=== PATIENT | female | born 1960 | race American Indian/Alaskan Native ===

== ENCOUNTER 2021-02-04 17:48 | Emergency (ER) | payer MEDICARE ==
[2021-02-04] MEDS ORDERED: ONDANSETRON 4 MG/2 ML INJ IV ONE (18:21)
[2021-02-04] MEDS ORDERED: hydrALAZINE 20 MG/1 ML INJ IV ONE (18:22)
--- NOTE | 2021-02-04 18:24 | Emergency Department Report ---
HPI - General Chief Complaint: Medical Clearance Time Seen by Provider: 02/04/21 18:09 - HPI HPI: This is a 60-year-old -[place] female [facility] with a complaint of needing drug and alcohol detox/rehabilitation, but the patient was not accepted at intake secondary to an elevated blood pressure. The patient does have a history of hypertension for which she was previously on HCTZlisinopril, but has been noncompliant with this medication. She also has a history of coronary artery disease with previous CA on Plavix, and hepatitis C. The patient is seeking treatment of an addiction to crack cocaine, heroin, morphine, and alcohol. The patient is a tobacco smoker. She has not used any substances since yesterday. She complains of some nausea without vomiting, body aches, diarrhea, and shortness of breath. ED Past Medical Hx - Past Medical History Previous Medical History?: No - Surgical History Past Surgical History?: No - Medications Home Medications: Home Medications Medication Instructions Recorded Confirmed Last Taken Type hydroCHLOROthiazide [Hctz] 12.5 mg PO QDAY #20 capsule 02/04/21 Unknown Rx lisinopriL [Lisinopril] 10 mg PO QDAY #20 tablet 02/04/21 Unknown Rx ED Review of Systems ROS: Stated complaint: HYPERTENSION Other details as noted in HPI Comment: All other systems reviewed and negative Constitutional: denies: chills, fever Eyes: denies: eye pain, vision change ENT: denies: ear pain, throat pain Respiratory: shortness of breath. denies: cough Cardiovascular: denies: chest pain, palpitations Gastrointestinal: abdominal pain (Cramping), nausea, diarrhea. denies: vomiting Genitourinary: denies: dysuria, discharge Musculoskeletal: myalgia. denies: joint swelling Skin: denies: rash, lesions Neurological: denies: headache, weakness Physical Exam - Physical Exam Vital Signs: Vital Signs 02/04/21 17:58 Temperature 98.0 F Pulse Rate 70 Respiratory 16 Rate Blood Pressure 183/111 [Right] O2 Sat by Pulse 99 Oximetry Physical Exam: GENERAL: The patient is well-developed well-nourished. HENT: Normocephalic. Atraumatic. Patient has moist mucous membranes. EYES: Extraocular motions are intact. NECK: Supple. Trachea is midline. CHEST/LUNGS: Clear to auscultation. There is no respiratory distress noted. HEART/CARDIOVASCULAR: Regular. There is no tachycardia. There is no murmur. ABDOMEN: Abdomen is soft, nontender. Patient has normal bowel sounds. SKIN: Skin is warm and dry. NEURO: The patient is awake, alert, and oriented. The patient is cooperative. The patient has no focal neurologic deficits. Normal speech. Cranial nerves II through XII grossly intact. MUSCULOSKELETAL: There is no tenderness or deformity. There is no limitation range of motion. ED Course Vital Signs 02/04/21 17:58 Temperature 98.0 F Pulse Rate 70 Respiratory 16 Rate Blood Pressure 183/111 [Right] O2 Sat by Pulse 99 Oximetry ED Medical Decision Making - Lab Data Result diagrams: 02/04/21 18:48 02/04/21 18:48 Lab Results 02/04/21 02/04/21 02/04/21 Range/Units 18:48 18:48 18:48 WBC 5.2 (4.5-11.0) K/mm3 RBC 4.24 (3.65-5.03) M/mm3 Hgb 13.2 (10.1-14.3) gm/dl Hct 39.4 (30.3-42.9) % MCV 93 (79-97) fl MCH 31 (28-32) pg MCHC 34 (30-34) % RDW 14.9 (13.2-15.2) % Plt Count 234 (140-440) K/mm3 Add Manual Diff Complete Total Counted 100 Seg Neuts % (Manual) 46.0 (40.0-70.0) % Lymphocytes % (Manual) 50.0 H (13.4-35.0) % Monocytes % (Manual) 2.0 (0.0-7.3) % Eosinophils % (Manual) 2.0 (0.0-4.3) % Nucleated RBC % Not Reportable Seg Neutrophils # Man 2.4 (1.8-7.7) K/mm3 Band Neutrophils # 0.0 K/mm3 Lymphocytes # (Manual) 2.6 (1.2-5.4) K/mm3 Abs React Lymphs (Man) 0.0 K/mm3 Monocytes # (Manual) 0.1 (0.0-0.8) K/mm3 Eosinophils # (Manual) 0.1 (0.0-0.4) K/mm3 Basophils # (Manual) 0.0 (0.0-0.1) K/mm3 Metamyelocytes # 0.0 K/mm3 Myelocytes # 0.0 K/mm3 Promyelocytes # 0.0 K/mm3 Blast Cells # 0.0 K/mm3 WBC Morphology Not Reportable Hypersegmented Neuts Not Reportable Hyposegmented Neuts Not Reportable Hypogranular Neuts Not Reportable Smudge Cells Not Reportable Toxic Granulation Not Reportable Toxic Vacuolation Not Reportable Dohle Bodies Not Reportable Pelger-Huet Anomaly Not Reportable Jez Rods Not Reportable Platelet Estimate Consistent w auto Clumped Platelets Not Reportable Plt Clumps, EDTA Not Reportable Large Platelets Not Reportable Giant Platelets Not Reportable Platelet Satelliting Not Reportable Plt Morphology Comment Not Reportable RBC Morphology Not Reportable Dimorphic RBCs Not Reportable Polychromasia Not Reportable Hypochromasia Not Reportable Poikilocytosis Not Reportable Anisocytosis Few Microcytosis Not Reportable Macrocytosis Not Reportable Spherocytes Not Reportable Pappenheimer Bodies Not Reportable Sickle Cells Not Reportable Target Cells Not Reportable Tear Drop Cells Not Reportable Ovalocytes Not Reportable Helmet Cells Not Reportable Dick-[place] Bodies Not Reportable [place] Rings Not Reportable Mirela Cells Not Reportable Bite Cells Not Reportable Crenated Cell Not Reportable Elliptocytes Not Reportable Acanthocytes (Spur) Not Reportable Rouleaux Not Reportable Hemoglobin C Crystals Not Reportable Schistocytes Not Reportable Malaria parasites Not Reportable Stan Bodies Not Reportable Hem Pathologist Commnt No Sodium 142 (137-145) mmol/L Potassium 3.5 L (3.6-5.0) mmol/L Chloride 110.6 H (98-107) mmol/L Carbon Dioxide 19 L (22-30) mmol/L Anion Gap 16 mmol/L BUN 14 (7-17) mg/dL Creatinine 1.0 (0.6-1.2) mg/dL Estimated GFR 56 ml/min BUN/Creatinine Ratio 14 % Glucose 79 (65-100) mg/dL Calcium 9.3 (8.4-10.2) mg/dL Total Bilirubin 0.30 (0.1-1.2) mg/dL AST 24 (5-40) units/L ALT 20 (7-56) units/L Alkaline Phosphatase 69 (35-129) units/L Total Protein 7.3 (6.3-8.2) g/dL Albumin 3.6 L (3.9-5) g/dL Albumin/Globulin Ratio 1.0 % Salicylates < 0.3 L (2.8-20.0) mg/dL Acetaminophen (10.0-30.0) ug/mL Plasma/Serum Alcohol (0-0.07) % 02/04/21 02/04/21 Range/Units 18:48 18:48 WBC (4.5-11.0) K/mm3 RBC (3.65-5.03) M/mm3 Hgb (10.1-14.3) gm/dl Hct (30.3-42.9) % MCV (79-97) fl MCH (28-32) pg MCHC (30-34) % RDW (13.2-15.2) % Plt Count (140-440) K/mm3 Add Manual Diff Total Counted Seg Neuts % (Manual) (40.0-70.0) % Lymphocytes % (Manual) (13.4-35.0) % Monocytes % (Manual) (0.0-7.3) % Eosinophils % (Manual) (0.0-4.3) % Nucleated RBC % Seg Neutrophils # Man (1.8-7.7) K/mm3 Band Neutrophils # K/mm3 Lymphocytes # (Manual) (1.2-5.4) K/mm3 Abs React Lymphs (Man) K/mm3 Monocytes # (Manual) (0.0-0.8) K/mm3 Eosinophils # (Manual) (0.0-0.4) K/mm3 Basophils # (Manual) (0.0-0.1) K/mm3 Metamyelocytes # K/mm3 Myelocytes # K/mm3 Promyelocytes # K/mm3 Blast Cells # K/mm3 WBC Morphology Hypersegmented Neuts Hyposegmented Neuts Hypogranular Neuts Smudge Cells Toxic Granulation Toxic Vacuolation Dohle Bodies Pelger-Huet Anomaly Jez Rods Platelet Estimate Clumped Platelets Plt Clumps, EDTA Large Platelets Giant Platelets Platelet Satelliting Plt Morphology Comment RBC Morphology Dimorphic RBCs Polychromasia Hypochromasia Poikilocytosis Anisocytosis Microcytosis Macrocytosis Spherocytes Pappenheimer Bodies Sickle Cells Target Cells Tear Drop Cells Ovalocytes Helmet Cells Dick-Tim[place] Bodies [place] Rings Mirela Cells Bite Cells Crenated Cell Elliptocytes Acanthocytes (Spur) Rouleaux Hemoglobin C Crystals Schistocytes Malaria parasites Stan Bodies Hem Pathologist Commnt Sodium (137-145) mmol/L Potassium (3.6-5.0) mmol/L Chloride (98-107) mmol/L Carbon Dioxide (22-30) mmol/L Anion Gap mmol/L BUN (7-17) mg/dL Creatinine (0.6-1.2) mg/dL Estimated GFR ml/min BUN/Creatinine Ratio % Glucose (65-100) mg/dL Calcium (8.4-10.2) mg/dL Total Bilirubin (0.1-1.2) mg/dL AST (5-40) units/L ALT (7-56) units/L Alkaline Phosphatase (35-129) units/L Total Protein (6.3-8.2) g/dL Albumin (3.9-5) g/dL Albumin/Globulin Ratio % Salicylates (2.8-20.0) mg/dL Acetaminophen 5.0 L (10.0-30.0) ug/mL Plasma/Serum Alcohol < 0.01 (0-0.07) % - Radiology Data Radiology results: image reviewed interpreted by me: Chest x-ray does not show any acute process. There are no pleural effusions, obvious pneumonia and there is no pneumothorax. No widened mediastinum. - Medical Decision Making This patient presents to the emergency department with elevated and uncontrolled blood pressure, and some signs of withdrawal. She was about to be accepted through intake to [facility] for alcohol and polysubstance detox and rehabilitation when she was found to have a very elevated blood pressure. She does have a history of hypertension for which she was previously on lisinopril and hydrochlorothiazide but has been noncompliant with this medication. Patient is awake, alert, oriented, AAO x3. She does not appear in any respiratory or acute distress. Chest x-ray does not show any pneumonia, pleural effusions, pneumothorax, widened mediastinum, or any other acute process. Labs have been mostly unremarkable including CBC, metabolic panel, salicylate and acetaminophen levels, blood alcohol level. Patient was given some Zofran ODT, and Catapres. The patient's blood pressure came down to a more reasonable level. There has been no vomiting while in the emergency department. The patient does not appear to have any signs of severe alcohol withdrawal or delirium tremens. [facility] called and says that the patient is accepted as soon as she is cleared. The patient will be transferred back to [facility] with a prescription for her HCTZ and lisinopril. Critical Care Time: No Critical care attestation.: If time is entered above; I have spent that time in minutes in the direct care of this critically ill patient, excluding procedure time. ED Disposition Clinical Impression: Medical clearance for psychiatric admission, History of alcohol dependence, Polysubstance dependence Hypertension Qualifiers: Hypertension type: primary hypertension Qualified Code(s): I10 - Essential (primary) hypertension Disposition: HOME / SELF CARE / HOMELESS Is pt being admited?: No Condition: Stable Instructions: Alcohol Abuse and Nutrition, Finding Treatment for Addiction, Hypertension, Adult, Hypertension (ED) Additional Instructions: Please follow-up with a primary care physician as soon as you are done with your drug and alcohol detox/rehabilitation. I am giving you a prescription for your blood pressure medications, lisinopril and HCTZ. Try to stay away from foods that are high in salt and caffeinated products. Keep a blood pressure log. Return to the emergency department with any worsening of your symptoms, new or concerning symptoms not addressed during this current emergency department visit, or with any acute distress. Prescriptions: hydroCHLOROthiazide [Hctz] 12.5 mg PO QDAY #20 capsule lisinopriL [Lisinopril] 10 mg PO QDAY #20 tablet Referrals: SHIRA OCHOA MD [Staff Physician] - 3-[address] [facility] [Provider Group] - 3-5 Days Time of Disposition: 22:13
--- NOTE | 2021-02-04 18:47 | XRay Report ---
CHEST 1 VIEW INDICATION: SOB. COMPARISON: None. FINDINGS: Support devices: None. Heart: Cardiac silhouette is enlarged. Lungs/Pleura: There are mild diffuse increased interstitial opacities greater on the right. No signif icant effusion, no pneumothorax. IMPRESSION: 1. Enlargement of the cardiac silhouette may be due to cardiomegaly. 2. Increased interstitial markings within both lungs are of uncertain chronicity. Mild pulmonary alex a could have this appearance. Signer Name: Otis Bonner MD Signed: 02/04/2021 6:43 PM Workstation Name: [id number]
[2021-02-04] MEDS ORDERED: THIAMINE 100 MG, FOLIC ACID 1 MG, MULTIPLE VITAMIN INJ, ADULT 10 ML in SODIUM CHLORIDE ... IV ONE (19:21)
[2021-02-04 19:33] LABS: Hematocrit 39.4 % (30.3-42.9); Hemoglobin 13.2 gm/dl (10.1-14.3); Mean Corpuscular HGB Conc 34 % (30-34); Mean Corpuscular Volume 93 fl (79-97); Platelet Count 234 K/mm3 (140-440); Red Blood Count 4.24 M/mm3 (3.65-5.03); Red Cell Distribution Width 14.9 % (13.2-15.2)
[2021-02-04 20:01] LABS: Albumin 3.6 g/dL (3.9-5); Calcium 9.3 mg/dL (8.4-10.2)
[2021-02-04] MEDS ORDERED: cloNIDine 0.2 MG TAB PO ONE (20:34)
[2021-02-04 21:26] LABS: Total Cells Counted 100
[2021-02-04 21:29] LABS: Anisocytosis Few; Platelet Estimate Consistent w Auto
[2021-02-04 22:14] VITALS: BP 148/87
[2021-02-05] MEDS ORDERED: cloNIDine 0.2 MG TAB ONE (05:36)
== END 2021-02-05 00:11 | disposition home or self-care (01) ==
LOC: ED 17:48
DX: I10 Essential (primary) hypertension (principal); F19.20 Other psychoactive substance dependence, uncomplicated; Z04.6 Encounter for general psychiatric examination, requested by authority; F10.20 Alcohol dependence, uncomplicated; I25.10 Atherosclerotic heart disease of native coronary artery without angina pectoris
CPT/HCPCS: 36415; 71045; 80053; 85007; 85025; 96365; 96366; 96375; 99284; J0360; J2405; J3411; J7030; 80320; G0480